=== PATIENT | male | born 1990 | race Caucasian/White ===

== ENCOUNTER 2019-10-21 10:15 | Emergency (ER) | payer SELFPAY ==
[~2019-10-21] VITALS: Ht 157.5 cm; Wt 63.5 kg
[2019-10-21 10:15] VITALS: BP_SYST 136
--- NOTE | 2019-10-21 10:15 | NUR ---
Patient to [facility] for evaluation. Side rails up.
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
--- NOTE | 2019-10-21 10:19 | NUR ---
Note isabel in [facility] - 10/21/19 at 1019 by [email or web address] Patient to ER bed H1 to gown for evaluation. Side rails up.
--- NOTE | 2019-10-21 10:55 | NUR ---
ER examining patient.
[2019-10-21] MEDS ORDERED: DIPH-TET-PERTUS Vaccine 0.5 ML VIAL (ADACEL) I.M. ONE (11:00)
[2019-10-21 11:12] VITALS: BP_SYST 136
--- NOTE | 2019-10-21 11:12 | NUR ---
Patient given written and verbal discharge instructions and verbalizes understanding. ER MD discussed with patient the results and treatment provided. Patient in stable condition. ID arm band removed. Patient educated on pain management and to follow up with PMD. Pain Scale 0/10. Opportunity for questions provided and answered. Medication side effect fact sheet provided.
== END 2019-10-21 11:12 ==
LOC: SED 10:15
DX: S00.81XA Abrasion of other part of head, initial encounter (principal); R03.0 Elevated blood-pressure reading, without diagnosis of hypertension; W50.4XXA Accidental scratch by another person, initial encounter; Y93.89 Activity, other specified; Y92.89 Other specified places as the place of occurrence of the external cause; Y99.8 Other external cause status
CPT/HCPCS: 99285